=== PATIENT | male | born 1995 | race Hispanic/Latino ===

== ENCOUNTER 2018-02-17 19:32 | Emergency (ER) | payer BC ==
[2018-02-17 19:52] VITALS: BMI 25.8
[2018-02-17 19:58] VITALS: BP 118/71; PULSE 69; RESP 16; TEMP 99.3; O2SAT 100
--- NOTE | 2018-02-17 20:03 | ED PDOC ---
Arrival/HPI - General Historian: Patient, Parent - History of Present Illness Time/Duration: Other (yesterday) Symptom Onset: Gradual Symptom Course: Worsening Quality: Aching, Burning Severity Level: Mild <Jackelyn Loaiza - Last Filed: 02/17/18 20:00> <Paco Estrella - Last Filed: 02/17/18 20:27> - General Chief Complaint: Fever Time Seen by Provider: 02/17/18 19:51 - History of Present Illness Narrative History of Present Illness (Text): 02/17/18 20:03 22-year-old male presents today with a sore throat and fever since yesterday. Patient states today he noticed bright patchy spots on his throat tonsils bilaterally. Patient states she's been taking Motrin and Tylenol for fever reduction. Patient states his temperature was 101 at home. He denies cough. Denies trismus or drooling. Patient is complaining of pain with swallowing. No other complaints patient denies any sick contacts (Jackelyn Loaiza) Past Medical History - Provider Review Nursing Documentation Reviewed: Yes - Travel History Have you recently traveled outside [place] w/in the past 3 mons?: No - Tetanus Immunization Tetanus Immunization: Unknown - Psychiatric Hx Substance Use: No <Jackelyn Loaiza - Last Filed: 02/17/18 20:00> Family/Social History - Physician Review Nursing Documentation Reviewed: Yes Family/Social History: Unknown Family HX Smoking Status: Never Smoked Hx Alcohol Use: No Hx Substance Use: No <Jackelyn Loaiza - Last Filed: 02/17/18 20:00> Allergies/Home Meds <Jackelyn Loaiza - Last Filed: 02/17/18 20:00> <Paco Estrella - Last Filed: 02/17/18 20:27> Allergies/Adverse Reactions: Allergies No Known Allergies Allergy (Verified 02/17/18 19:59) Review of Systems - Review of Systems Constitutional: Fevers. absent: Fatigue ENT: Sore Throat, Sinus Congestion Respiratory: absent: SOB, Cough Cardiovascular: absent: Chest Pain, Palpitations Gastrointestinal: absent: Abdominal Pain, Nausea, Vomiting Neurological: absent: Headache, Dizziness <Jackelyn Loaiza - Last Filed: 02/17/18 20:00> Physical Exam Vital Signs Reviewed: Yes Temperature: Afebrile Blood Pressure: Normal Pulse: Regular Respiratory Rate: Normal Appearance: Positive for: Well-Appearing, Non-Toxic, Comfortable Pain Distress: None Mental Status: Positive for: Alert and Oriented X 3 - Systems Exam Head: Present: Atraumatic Conjunctiva: Present: Normal Ears: Present: Normal, NORMAL TM, Normal Canal. No: Erythema Mouth: Present: Moist Mucous Membranes, Normal Lips, Normal Tounge. No: Drooling, Trismus Pharnyx: Present: ERYTHEMA, EXUDATE. No: TONSILS ENLARGED, Peritonsilar Swelling, Uvular Deviation, Muffled/Hoarse Voice, Strider, Soft Palate/Uvular Edema Nose (External): Present: Atraumatic Nose (Internal): Present: Clear Mucous. No: Rhinorrhea, Septal Hematoma Neck: Present: Normal Range of Motion, Trachea Midline. No: Lymphadenopathy Respiratory/Chest: Present: Clear to Auscultation, Good Air Exchange. No: Respiratory Distress, Accessory Muscle Use Cardiovascular: Present: Regular Rate and Rhythm, Normal S1, S2. No: Murmurs Neurological: Present: GCS=15 Skin: Present: Warm, Dry, Normal Color. No: Rashes Psychiatric: Present: Alert, Oriented x 3 <Jackelyn Loaiza - Last Filed: 02/17/18 20:00> Vital Signs Temp Pulse Resp BP Pulse Ox 02/17/18 20:26 99.3 F 69 16 118/71 100 02/17/18 19:52 99.3 F 69 16 118/71 100 Medical Decision Making <Jackelyn Loaiza - Last Filed: 02/17/18 20:00> <Paco Estrella - Last Filed: 02/17/18 20:27> ED Course and Treatment: 02/17/18 20:06 Patient is nontoxic well appearing in no distress. Vital signs are stable Tolerating p.o. fluids and solids amoxicillin po I advised follow up with primary care physician and ENT specialist within the next 2 days, advised to increase fluids take medications as prescribed and return if symptoms worsen persist or if new symptoms develop Patient verbalizes understanding of discharge instructions and need for immediate followup. all aspects of this case were discussed the attending of record. IMPRESSION; pharyngitis Motrin every 6 hours as needed for pain/fever reduction Increase fluids Amoxicillin 3 times daily x10 days Flonase; 2 sprays each nostril once daily. Follow up primary care physician within the next 2 days. Follow up with the ENT specialist within the next 2 days. Saltwater gargles, throat lozenges Return if symptoms worsen persist or if the symptoms develop (Jackelyn Loaiza) - Medication Orders Current Medication Orders: Discontinued Medications Amoxicillin (Amoxil 500 Mg Cap) 500 mg PO STAT STA PRN Reason: Protocol Stop: 02/17/18 20:00 Last Admin: 02/17/18 20:14 Dose: 500 mg - PA / DIRECTOR OF LAND ACQUISITION / Resident Statement STACIA has reviewed & agrees with the documentation as recorded. STACIA has examined the patient and agrees with the treatment plan. <Paco Estrella - Last Filed: 02/17/18 20:27> Disposition/Present on Arrival - Present on Arrival Any Indicators Present on Arrival: No History of DVT/PE: No History of Uncontrolled Diabetes: No Urinary Catheter: No History of Decub. Ulcer: No History Surgical Site Infection Following: None - Disposition Have Diagnosis and Disposition been Completed?: Yes Disposition Time: 20:00 Patient Plan: Discharge <Jackelyn Loaiza - Last Filed: 02/17/18 20:00> <Paco Estrella - Last Filed: 02/17/18 20:27> - Disposition Diagnosis: Pharyngitis Disposition: HOME/ ROUTINE Condition: GOOD Discharge Instructions (ExitCare): Sore Throat, Adult (DC) Additional Instructions: Motrin every 6 hours as needed for pain/fever reduction Increase fluids Amoxicillin 3 times daily x10 days Flonase; 2 sprays each nostril once daily. Follow up primary care physician within the next 2 days. Follow up with the ENT specialist within the next 2 days. Saltwater gargles, throat lozenges Return if symptoms worsen persist or if the symptoms develop Prescriptions: Amoxicillin 500 mg PO TID #30 tab Fluticasone Nasal [Flonase] 2 spr NS DAILY #1 spr Ibuprofen [Motrin] 600 mg PO Q6H PRN #20 tab PRN Reason: pain/fever reduction Referrals: Doug Mello MD [Primary Care Provider] - Follow up with primary Miguel Angel Joaquin DO [[facility]] - Follow up with primary Forms: Blend (Finnish)
== END 2018-02-17 20:26 | disposition home or self-care (01) ==
LOC: EDBD → EDSEX → MERGE 19:32 → ED 19:32 → EDUNIT# 19:32 → UNMERGE 19:32 → ED 20:26
DX: J02.9 Acute pharyngitis, unspecified (principal)